=== PATIENT | male | born 1950 | race Caucasian/White ===

== ENCOUNTER 2018-06-25 08:39 | Emergency (ER) | payer MEDICARE, OTHER ==
[2018-06-25] MEDS: ACETAMINOPHEN 500 MG TAB PO (10:01)
== END 2018-06-25 11:48 | disposition home or self-care (01) ==
LOC: FTE 08:39
DX: S80.02XA Contusion of left knee, initial encounter (principal); I10 Essential (primary) hypertension; E11.9 Type 2 diabetes mellitus without complications; W01.0XXA Fall on same level from slipping, tripping and stumbling without subsequent striking against object, initial encounter; Y92.9 Unspecified place or not applicable; Z87.891 Personal history of nicotine dependence
CPT/HCPCS: 73562; 99283-25